=== PATIENT | female | born 1990 | race American Indian/Alaskan Native ===

== ENCOUNTER 2017-02-13 14:38 | Emergency (ER) | payer MEDICAID ==
[2017-02-13 14:39] VITALS: BMI 29.0
[2017-02-13 14:58] VITALS: RESP 18; TEMP 98.1
[2017-02-13 16:30] VITALS: BP 124/72; PULSE 81; O2SAT 98
--- NOTE | 2017-02-13 16:32 | C.PDOC ---
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 Patient reports of same symptoms previously. Upon arrival, patient denies fever, chest pain, SOB, nausea, vomiting, headache, weakness or numbness. Time Seen by Provider: 02/13/17 15:10 Chief Complaint (Nursing): Chest Pain History Per: Patient History/Exam Limitations: no limitations Onset/Duration Of Symptoms: Sudden Onset (SECURITY INSTALLATION TECHNICIAN) Past Medical History Reviewed: Historical Data, Nursing Documentation, Vital Signs Vital Signs: Last Vital Signs Temp 98.1 F 02/13/17 14:55 Pulse 81 02/13/17 15:40 Resp 18 02/13/17 15:40 BP 124/72 02/13/17 15:40 Pulse Ox 98 02/13/17 16:33 Family History: States: No Known Family Hx - Social History Hx Tobacco Use: Yes (former smoker) Hx Alcohol Use: Yes (social) Hx Substance Use: No - Immunization History Hx Tetanus Toxoid Vaccination: No Hx Influenza Vaccination: No Hx Pneumococcal Vaccination: No Review Of Systems Except As Marked, All Systems Reviewed And Found Negative. Constitutional: Negative for: Fever Cardiovascular: Negative for: Chest Pain Respiratory: Negative for: Shortness of Breath Gastrointestinal: Negative for: Nausea, Vomiting Neurological: Negative for: Weakness, Numbness, Headache Psych: Positive for: Anxiety Physical Exam - Physical Exam Appears: Well, Non-toxic, No Acute Distress Skin: Warm, Dry, No Rash Head: Atraumatic, Normacephalic Eye(s): bilateral: Normal Inspection, PERRL, EOMI Chest: Symmetrical, No Tenderness Cardiovascular: Rhythm Regular, No Murmur Respiratory: Normal Breath Sounds, No Rales, No Rhonchi, No Stridor, No Wheezing Extremity: Normal ROM, No Swelling Neurological/Psych: Oriented x3, Normal Speech, Normal Cognition ED Course And Treatment ECG: Interpreted By Me, Viewed By Me ECG Rhythm: Sinus Rhythm ECG Interpretation: Normal Interpretation Of ECG: Normal intervals. Normal axis. O2 Sat by Pulse Oximetry: 98 Medical Decision Making Medical Decision Making: PLAN: * EKG Disposition - Disposition Referrals: Matthew Blackburn, [Non-Staff] - Disposition: HOME/ ROUTINE Disposition Time: 15:15 Condition: IMPROVED Additional Instructions: Thank you for letting us take care of you today. Your provider was Dr. Lundberg. You were treated for anxiety. The emergency medical care you received today was directed at your acute symptoms. If you were prescribed any medication, please fill it and take as directed. It may take several days for your symptoms to resolve. Return to the Emergency Department if your symptoms worsen, do not improve, or if you have any other problems. Please contact your doctor or call one of the physicians/clinics you have been referred to that are listed on the Patient Visit Information form that is included in your discharge packet. Bring any paperwork you were given at discharge with you along with any medications you are taking to your follow up visit. Our treatment cannot replace ongoing medical care by a primary care provider (PCP) outside of the emergency department. Thank you for allowing the [facility] team to be part of your care today. Follow up with your doctor in 3-4 days to be re-evaluated. Instructions: Noncardiac Chest Pain (ED), Anxiety (ED) Forms: Work Excuse - Clinical Impression Clinical Impression: Non-cardiac chest pain - Scribe Statement The provider has reviewed the documentation as recorded by the Phillip Lemus Provider Attestation: All medical record entries made by the Phillip were at my direction and personally dictated by me. I have reviewed the chart and agree that the record accurately reflects my personal performance of the history, physical exam, medical decision making, and the department course for this patient. I have also personally directed, reviewed, and agree with the discharge instructions and disposition.
== END 2017-02-13 15:45 | disposition home or self-care (01) ==
LOC: C.ER 14:38
DX: R07.89 Other chest pain (principal)

== ENCOUNTER 2017-03-09 22:43 | Emergency (ER) | payer MEDICAID ==
[2017-03-09 22:44] VITALS: BMI 29.0
--- NOTE | 2017-03-09 22:55 | C.PDOC ---
History Of Present Illness pt complaining of mild llq discomfort. No f/c/n/v. LMP 01/21. Unprotected intercourse Time Seen by Provider: 03/09/17 22:55 Chief Complaint (Nursing): Abdominal Pain History Per: Patient History/Exam Limitations: no limitations Onset/Duration Of Symptoms: Days Current Symptoms Are (Timing): Still Present Context: Other Severity: Mild Pain Scale Rating Of: 3 Location Of Pain/Discomfort: LLQ Radiation Of Pain To:: None Quality Of Discomfort: Dull Associated Symptoms: denies: Fever, Chills, Nausea Exacerbating Factors: None Alleviating Factors: None Last Bowel Movement: Today Recent travel outside of the [place]: No Additional History Per: Family Past Medical History Reviewed: Historical Data, Nursing Documentation, Vital Signs Vital Signs: Last Vital Signs Temp 98.3 F 03/09/17 22:45 Pulse 83 03/09/17 22:45 Resp 20 03/09/17 22:45 BP 124/81 03/09/17 22:45 Pulse Ox 100 03/09/17 22:55 Family History: States: No Known Family Hx - Social History Hx Tobacco Use: Yes (former smoker) Hx Alcohol Use: No (social) Hx Substance Use: No - Immunization History Hx Tetanus Toxoid Vaccination: No Hx Influenza Vaccination: No Hx Pneumococcal Vaccination: No Review Of Systems Constitutional: Negative for: Fever, Chills Cardiovascular: Negative for: Chest Pain, Palpitations Respiratory: Negative for: Shortness of Breath Gastrointestinal: Positive for: Abdominal Pain. Negative for: Nausea, Vomiting Genitourinary: Negative for: Dysuria, Vaginal Discharge, Pelvic Pain Musculoskeletal: Negative for: Back Pain Skin: Negative for: Rash, Lesions, Jaundice, Bruising Neurological: Negative for: Weakness Psych: Negative for: Anxiety Physical Exam - Physical Exam Appears: Non-toxic, No Acute Distress Skin: Warm, Dry Eye(s): bilateral: Normal Inspection Oral Mucosa: Moist Chest: Symmetrical Cardiovascular: Rhythm Regular Respiratory: No Rales, No Rhonchi, No Wheezing Gastrointestinal/Abdominal: Soft, Tenderness (milf llq), No Distention, No Guarding, No Rebound Back: Normal Inspection Extremity: Normal ROM Extremity: Bilateral: Atraumatic Neurological/Psych: Oriented x3, Normal Speech, Normal Cognition Gait: Steady ED Course And Treatment - Laboratory Results Result Diagrams: 03/09/17 23:13 03/09/17 23:13 O2 Sat by Pulse Oximetry: 100 Pulse Ox Interpretation: Normal Reevaluation Time: 00:52 Reassessment Condition: Improved Medical Decision Making Medical Decision Making: Pt does not want to wait for the US (coming from home) Understands that there are risks , possible ectopic , but pt wants to go home. 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
[2017-03-09] MEDS ORDERED: Sodium Chloride 0.9% 1,000 ML IV ONE (22:56)
[2017-03-09 23:16] LABS: BASO % 0.4 % (0.0-2.0); EOS # 0.1 K/uL (0.0-0.7); EOS % 0.6 % (0.0-4.0); HEMATOCRIT 36.4 % (34.0-47.0); LYMPH # 2.3 K/uL (1.0-4.3); LYMPH % 22.7 % (20.0-40.0); MEAN CELL VOLUME 90.3 fL (81.0-99.0); MEAN CORPUSCULAR HEMOGLOBIN 31.4 pg (27.0-31.0); MEAN CORPUSCULAR HGB CONC 34.7 g/dL (33.0-37.0); MONO # 0.7 K/uL (0.0-0.8); MONO % 6.9 % (0.0-10.0); RED CELL DISTRIBUTION WIDTH 12.5 % (11.5-14.5)
[2017-03-09 23:20] LABS: RBC URINE < 1 /hpf (0-3); URINE BILIRUBIN NEGATIVE (NEGATIVE); URINE BLOOD NEGATIVE (NEGATIVE); URINE COLOR Yellow (YELLOW); URINE GLUCOSE (UA) NORMAL (Normal); URINE KETONE NEGATIVE (NEGATIVE); URINE LEUKOCYTE ESTERASE NEG Leu/uL (Negative); URINE PROTEIN NEGATIVE (NEGATIVE); URINE UROBILINOGEN NORMAL mg/dL (0.2-1.0); WBC URINE 2 /hpf (0-5)
[2017-03-09 23:27] LABS: CHLORIDE 98 mmol/L (98-107)
[2017-03-09] MEDS ORDERED: Sodium Chloride 0.9% 1,000 ML ONE (23:27)
[2017-03-09 23:28] LABS: POTASSIUM 3.5 mmol/L (3.6-5.2); SODIUM 135 mmol/L (132-148)
[2017-03-09 23:30] LABS: ALB/GLOB RATIO 1.3 (1.0-2.1); ALKALINE PHOSPHATASE 77 U/L (38-126); ALT/SGPT 14 U/L (9-52); AST/SGOT 33 U/L (14-36); BILIRUBIN,TOTAL 0.4 mg/dL (0.2-1.3); BLOOD UREA NITROGEN 9 mg/dL (7-17); CARBON DIOXIDE 24 mmol/L (22-30); GFR AFRICAN-AMERICAN > 60; GLUCOSE,RANDOM 85 mg/dL (65-105); TOTAL PROTEIN 8.1 g/dL (6.3-8.3)
[2017-03-10 01:29] VITALS: BP 120/73; PULSE 69; RESP 16; TEMP 98.4; O2SAT 99
== END 2017-03-10 01:29 | disposition home or self-care (01) ==
LOC: C.ER 22:43
DX: O26.891 Other specified pregnancy related conditions, first trimester (principal); Z3A.00 Weeks of gestation of pregnancy not specified
CPT/HCPCS: 80053; 81001; 83690; 84702; 84703; 85025; 86850; 86900; 96361; 96374; 96375; 99284; J2405; J7040

== ENCOUNTER 2017-11-07 14:58 | Emergency (ER) | payer MEDICAID ==
[2017-11-07 14:58] VITALS: BMI 29.0
[2017-11-07 15:28] VITALS: RESP 18; O2SAT 100
[2017-11-07 15:54] LABS: HCG,QUALITATIVE URINE POSITIVE (NEGATIVE)
[2017-11-07 16:04] LABS: PH,URINE 5.5 (5.0-8.0); URINE BILIRUBIN NEGATIVE (NEGATIVE); URINE BLOOD NEGATIVE (NEGATIVE); URINE CLARITY Clear (Clear); URINE COLOR YELLOW (YELLOW); URINE GLUCOSE (UA) NEGATIVE (Normal); URINE LEUKOCYTE ESTERASE NEGATIVE Leu/uL (Negative); URINE NITRATE NEGATIVE (NEGATIVE); URINE PROTEIN NEGATIVE (NEGATIVE); URINE UROBILINOGEN 0.2 mg/dL (0.2-1.0)
[2017-11-07] MEDS ORDERED: Sodium Chloride 0.9% 1,000 ML IV STA (16:53)
[2017-11-07] MEDS ORDERED: Sodium Chloride 0.9% 1,000 ML ONE (17:08)
[2017-11-07 17:21] LABS: BASO % 0.4 % (0.0-2.0); EOS # 0.1 K/uL (0.0-0.7); EOS % 0.8 % (0.0-4.0); HEMOGLOBIN 12.6 g/dL (11.0-16.0); LYMPH # 2.1 K/uL (1.0-4.3); LYMPH % 24.8 % (20.0-40.0); MEAN CELL VOLUME 90.7 fL (81.0-99.0); MEAN CORPUSCULAR HEMOGLOBIN 31.9 pg (27.0-31.0); MEAN CORPUSCULAR HGB CONC 35.2 g/dL (33.0-37.0); MEAN PLATELET VOLUME 8.8 fL (7.2-11.7); MONO # 0.4 K/uL (0.0-0.8); MONO % 4.7 % (0.0-10.0); NEUT # 5.9 K/uL (1.8-7.0); NEUT % 69.3 % (50.0-75.0); NRBC % 0.1 % (0.0-2.0); RBC 3.96 Mil/uL (3.80-5.20); RED CELL DISTRIBUTION WIDTH 13.4 % (11.5-14.5); WHITE BLOOD COUNT 8.5 K/uL (4.8-10.8)
--- NOTE | 2017-11-07 17:38 | C.PDOC ---
History Of Present Illness <Vickie Correa - Last Filed: 11/07/17 19:11> <Ainsley Charlton - Last Filed: 11/07/17 20:13> 27 y/o female presents to ED with complaints of intermittent LLQ abdominal pain and left flank pain for 2 days. Patient denies nausea,vomiting, diarrhea, vaginal bleeding, vaginal discharge or any other complaints at this time. LMP 10/09/17 (Vickie Correa) History Per: Patient History/Exam Limitations: no limitations Onset/Duration Of Symptoms: Days Current Symptoms Are (Timing): Still Present Location Of Pain/Discomfort: LLQ, Other (Left Flank pain) <Vickie Correa - Last Filed: 11/07/17 19:11> <Ainsley Charlton - Last Filed: 11/07/17 20:13> Time Seen by Provider: 11/07/17 16:17 Chief Complaint (Nursing): Abdominal Pain Past Medical History Reviewed: Historical Data, Nursing Documentation, Vital Signs - Medical History PMH: No Chronic Diseases Surgical History: No Surg Hx Family History: States: No Known Family Hx - Social History Hx Tobacco Use: Yes (former smoker) Hx Alcohol Use: No (social) Hx Substance Use: No - Immunization History Hx Tetanus Toxoid Vaccination: No Hx Influenza Vaccination: No Hx Pneumococcal Vaccination: No <Vickie Correa - Last Filed: 11/07/17 19:11> Vital Signs: Last Vital Signs Temp 98.8 F 11/07/17 19:53 Pulse 73 11/07/17 19:53 Resp 18 11/07/17 19:53 BP 108/72 11/07/17 19:53 Pulse Ox 100 11/07/17 19:53 Review Of Systems Constitutional: Negative for: Fever, Chills Gastrointestinal: Positive for: Abdominal Pain. Negative for: Nausea, Vomiting Genitourinary: Negative for: Vaginal Discharge, Vaginal Bleeding Skin: Negative for: Rash <Vickie Correa - Last Filed: 11/07/17 19:11> Physical Exam - Physical Exam Appears: Well, Non-toxic, No Acute Distress Skin: Normal Color, Warm, No Rash Head: Atraumatic, Normacephalic Eye(s): bilateral: Normal Inspection Neck: Normal, Normal ROM Chest: Symmetrical, No Tenderness Cardiovascular: Rhythm Regular, No Edema Respiratory: Normal Breath Sounds, No Rales, No Wheezing Gastrointestinal/Abdominal: Normal Exam, Soft, Tenderness (left suprapubic area) Back: No CVA Tenderness, No Vertebral Tenderness, No Paraspinal Tenderness Extremity: Normal ROM, No Tenderness Neurological/Psych: Oriented x3, Normal Speech, Normal Cognition <Vickie Correa - Last Filed: 11/07/17 19:11> ED Course And Treatment - Laboratory Results Result Diagrams: 11/07/17 17:18 11/07/17 17:18 O2 Sat by Pulse Oximetry: 100 (RA) Pulse Ox Interpretation: Normal Progress Note: POC urine preg, Pelvis US, Blood work Ordered. 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 - Scribe Statement The provider has reviewed the documentation as recorded by the Scribe <Vickie Correa - Last Filed: 11/07/17 19:11> <Ainsley Charlton - Last Filed: 11/07/17 20:13> - Scribe Statement Jose Hernandez All medical record entries made by the Scribe were at my direction and personally dictated by me. I have reviewed the chart and agree that the record accurately reflects my personal performance of the history, physical exam, medical decision making, and the department course for this patient. I have also personally directed, reviewed, and agree with the discharge instructions and disposition. (Vickie Correa) Physician Patient Turnover Patient Signed Over To: Ainsley Charlton Handoff Comments: pending US reports and dispo <Vickie Correa - Last Filed: 11/07/17 19:11> Addendum <Vickie Correa - Last Filed: 11/07/17 19:11> <Ainsley Charlton - Last Filed: 11/07/17 20:13> Addendum: 11/07/17 20:13 EXAM: US First Trimester, Transabdominal CLINICAL HISTORY: 27 years old, female; Pain; Other: Lt pelvic pain; Gestational age or lmp: 1- 18; ; Patient HX: See cine please; Additional info: Early , left abd/flank pain TECHNIQUE: Real-time transabdominal obstetrical ultrasound of the maternal pelvis and a first trimester with image documentation. COMPARISON: No relevant prior studies available. FINDINGS: Gestation: Single live intrauterine gestation. heart rate of 120 beats per minute. [place]-rump length of 0.6 cm, correlating with gestational age of 6 weeks 2 days. Uterus/cervix: 1.2 x 1.1 x 1.3 cm hypoechoic lesion within left lateral aspect of uterine fundus. No subchorionic hemorrhage. No cervical dilatation or effacement. Ovaries: Normal ovaries. No adnexal masses. Free fluid: Small free fluid within pelvis. IMPRESSION: 1. Single live intrauterine gestation. 2. Uterine lesion, nonspecific. Suggest followup. 3. Incidental/non-acute findings are described above. [facility] Final Radiology Report [id number] Name: MARTHA BENEDICT Age: 27Years F Date: 11/07/2017 SSN: [id number] : 1990 Study: US TRANSVAGINAL Requesting Physician: Vickie Correa PA-C Images: 0 Addl Studies: [id number] - US TRANSABD FIRST TRIMESTER FIRST GEST (0) Provided Clinical History: early , left abd/flank pain CONFIDENTIALITY STATEMENT This transmission is confidential and is intended to be a privileged communication. It is intended only for the use of the addressee. Access to this message by anyone else is unauthorized. If you are not the intended recipient, any disclosure, copying, distribution or any action taken, or omitted to be taken in reliance on it is prohibited and may be unlawful. If you received this communication in error, please notify us by telephone, so that return of this document to us can be arranged. Page 2 of 3 EXAM: US , Transvaginal CLINICAL HISTORY: 27 years old, female; Pain; Other: Lt pelvic pain; Gestational age or lmp: 10-07- 18; ; Patient HX: See cine please; Additional info: Early , left abd/flank pain TECHNIQUE: Real-time transvaginal obstetrical ultrasound of the maternal pelvis and a first trimester with image documentation. Transvaginal imaging was used for better evaluation of the fetus and adnexa. COMPARISON: No relevant prior studies available. FINDINGS: Gestation: Single live intrauterine gestation. heart rate of 120 beats per minute. Hines-rump length of 0.6 cm, correlating with gestational age of 6 weeks 2 days. Uterus/cervix: 1.2 x 1.1 x 1.3 cm hypoechoic lesion within left lateral aspect of uterine fundus. No subchorionic hemorrhage. No cervical dilatation or effacement. Ovaries: Normal ovaries. No adnexal masses. Free fluid: Small free fluid within pelvis. IMPRESSION: 1. Single live intrauterine gestation. 2. Uterine lesion, nonspecific. Suggest followup. 3. Incidental/non-acute findings are described above. [facility] Radiology [facility] Final Radiology Report [id number] Name: MARTHA BENEDICT Age: 27Years F Date: 11/07/2017 SSN: [id number] : 1990 Study: US TRANSVAGINAL Requesting Physician: Vickie Correa PA-C Images: 0 Addl Studies: [id number] - US TRANSABD FIRST TRIMESTER FIRST GEST (0) Provided Clinical History: early , left abd/flank pain CONFIDENTIALITY STATEMENT This transmission is confidential and is intended to be a privileged communication. It is intended only for the use of the addressee. Access to this message by anyone else is unauthorized. If you are not the intended recipient, any disclosure, copying, distribution or any action taken, or omitted to be taken in reliance on it is prohibited and may be unlawful. If you received this communication in error, please notify us by telephone, so that return of this document to us can be arranged. Page 3 of 3 Thank you for allowing us to participate in the care of your patient. Dictated and Authenticated by: Arnold Osborne MD 11/07/2017 7:59 PM Eastern Time ([place] & [place]) (Ainsley Charlton
[2017-11-07 18:15] LABS: ALB/GLOB RATIO 1.1 (1.0-2.1); ALT/SGPT 21 U/L (9-52); AST/SGOT 22 U/L (14-36); BLOOD UREA NITROGEN 10 mg/dL (7-17); CALCIUM 8.6 mg/dl (8.6-10.4); GFR AFRICAN-AMERICAN > 60; GFR NON-AFRICAN AMERICAN > 60
[2017-11-07 19:53] VITALS: BP 108/72; PULSE 73; TEMP 98.8
--- NOTE | 2017-11-07 19:59 | US ---
EXAM: US First Trimester, Transabdominal CLINICAL HISTORY: 27 years old, female; Pain; Other: Lt pelvic pain; Gestational age or lmp: 1--18; ; Patient HX: See cine please; Additional info: Early , left abd/flank pain TECHNIQUE: Real-time transabdominal obstetrical ultrasound of the maternal pelvis and a first trimester with image documentation. COMPARISON: No relevant prior studies available. FINDINGS: Gestation: Single live intrauterine gestation. heart rate of 120 beats per minute. [place]-rump length of 0.6 cm, correlating with gestational age of 6 weeks 2 days. Uterus/cervix: 1.2 x 1.1 x 1.3 cm hypoechoic lesion within left lateral aspect of uterine fundus. No subchorionic hemorrhage. No cervical dilatation or effacement. Ovaries: Normal ovaries. No adnexal masses. Free fluid: Small free fluid within pelvis. IMPRESSION: 1. Single live intrauterine gestation. 2. Uterine lesion, nonspecific. Suggest followup. 3. Incidental/non-acute findings are described above. EXAM: US , Transvaginal CLINICAL HISTORY: 27 years old, female; Pain; Other: Lt pelvic pain; Gestational age or lmp: 1-18; ; Patient HX: See cine please; Additional info: Early , left abd/flank pain TECHNIQUE: Real-time transvaginal obstetrical ultrasound of the maternal pelvis and a first trimester with image documentation. Transvaginal imaging was used for better evaluation of the fetus and adnexa. COMPARISON: No relevant prior studies available. FINDINGS: Gestation: Single live intrauterine gestation. heart rate of 120 beats per minute. [place]-rump length of 0.6 cm, correlating with gestational age of 6 weeks 2 days. Uterus/cervix: 1.2 x 1.1 x 1.3 cm hypoechoic lesion within left lateral aspect of uterine fundus. No subchorionic hemorrhage. No cervical dilatation or effacement. Ovaries: Normal ovaries. No adnexal masses. Free fluid: Small free fluid within pelvis.
--- NOTE | 2017-11-07 20:01 | US ---
EXAM: US Retroperitoneal Limited, Renal CLINICAL HISTORY: 27 years old, female; Pain; Other: Lt flank pain; ; Additional info: Left flank pain/ TECHNIQUE: Real-time ultrasound of the retroperitoneum (limited) with image documentation. COMPARISON: No relevant prior studies available. FINDINGS: Limitations: Body habitus. Aorta: Unremarkable. No aneurysm. Right kidney: Normal echogenicity. No mass. No calculi. No hydronephrosis. Left kidney: Normal echogenicity. No mass. No calculi. No hydronephrosis. Bladder: Underdistended but grossly unremarkable. IMPRESSION: 1.No acute findings.
[2017-11-07] MEDS ORDERED: Potassium Chloride 20 mEq ER Tab PO STA (20:15)
[2017-11-07] MEDS ORDERED: Potassium Chloride 20 mEq ER Tab PO ONE (20:21)
== END 2017-11-07 20:33 | disposition home or self-care (01) ==
LOC: C.ER 14:58
DX: O26.891 Other specified pregnancy related conditions, first trimester (principal); R10.32 Left lower quadrant pain; E87.6 Hypokalemia; Z3A.01 Less than 8 weeks gestation of pregnancy
CPT/HCPCS: 76770; 76805; 76817; 80053; 81001; 84702; 84703; 85025; 86850; 86900; 99285; J7040